=== PATIENT | female | born 1970 | race Two or more races ===

== ENCOUNTER 2016-10-10 12:57 | Emergency (ER) | payer OTHER ==
[2016-10-10 13:15] VITALS: BP 140/88; PULSE 74; TEMP 98.2; BMI 28.5
--- NOTE | 2016-10-10 13:53 | PDOC ---
History of Present Illness - General Chief Complaint: Back Pain Stated Complaint: BACK PAIN Time Seen by Provider: 10/10/16 13:50 History Source: Patient Exam Limitations: No Limitations - History of Present Illness Initial Comments: CHIEF COMPLAINT: 46 y/o afebrile female with no significant PMH c/o left shoulder and right mid back pain for the past few days. 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 She states the pain started a few days ago. She has tried taking 200mg of ibuprofen one time with no relief. She denies trauma to back, fall, and all other symptoms. Vital signs on arrival are within normal limits. REVIEW OF SYSTEMS: GENERAL/CONSTITUTIONAL: Subjective fever/chills. No weakness. No weight change. HEAD, EYES, EARS, NOSE AND THROAT: No change in vision. No ear pain or discharge. No sore throat. CARDIOVASCULAR: No chest pain or shortness of breath. MUSCULOSKELETAL: +left shoulder pain and right mid back pain. No neck pain. SKIN: No rash or easy bruising. NEUROLOGIC: No headache, vertigo, loss of consciousness, or loss of sensation. PHYSICAL EXAM: GENERAL: The patient is awake, alert, and fully oriented, in no acute distress. SHe is well appearing and ambulatory. MUSCULOSKELETAL: Pain reproduced with palpation of left trapezius muscle. No left AC joint or clavicle TTP or deformities. BACK: Pain reproduced with palpation of right middle paravertebral back muscles. No midline thoracic or lumbar spine TTP or step offs. EXTREMITIES: Normal range of motion, no edema. NEUROLOGICAL: Normal speech, normal gait. CN II-XII grossly intact. PSYCH: Normal mood, normal affect. SKIN: Warm, dry, normal turgor, no rashes or lesions noted. Past History - Past Medical History Allergies/Adverse Reactions: Allergies Allergy/AdvReac Type Severity Reaction Status Date / Time No Known Allergies Allergy Verified 10/10/16 13:15 Home Medications: Ambulatory Orders NK [No Known Home Medication] 10/10/16 Other medical history: NONE - Psycho/Social/Smoking Cessation Hx Anxiety: No Suicidal Ideation: No Smoking History: Never smoked Hx Alcohol Use: No Drug/Substance Use Hx: No Substance Use Type: None *Physical Exam - Vital Signs Last Vital Signs Temp Pulse Resp BP Pulse Ox 98.2 F 74 20 140/88 99 10/10/16 13:12 10/10/16 13:12 10/10/16 13:12 10/10/16 13:12 10/10/16 13:12 Medical Decision Making - Medical Decision Making A/P: 46 y/o female with muscle strain of shoulder and back secondary to repetitive heavy pushing and pulling. The patient had a total hysterectomy and therefore cannot be . Plan is as follows: 1. IM toradol Instructed the patient to apply heating pad to affected area, take 600mg of ibuprofen every 6 hours for pain with food and avoid repetitive pushing and pulling. Instructed her to f/u with her PCP within 1 week and return to the ER with any worsening or concerning symptoms. The patient verbalizes understanding of all instructions, has no further questions and is awaiting discharge. *DC/Admit/Observation/Transfer Diagnosis at time of Disposition: Muscle strain - Discharge Dispostion Disposition: HOME Condition at time of disposition: Good - Patient Instructions Printed Discharge Instructions: DI for Muscle Strain Additional Instructions: Discharge Instructions: -Take 600mg of Ibuprofen every 6 hours with food for pain -Apply heating pad to the affected area as needed -Avoid repetitive pushing or pulling activities until feeling better -Return to the ER with any worsening or concerning symptoms Instrucciones de heladio: -Angélica 600mg de ibuprofeno cada 6 horas con alimentos para el dolor -Aplicar almohadilla de calefaccin a la romaine afectada segn sea necesario -Evitar las actividades repetitivas de empujar o tirar hasta sentirse mejor -Vuelva a la ramón de emergencias con cualquier empeoramiento o sntomas relacionados Print Language: ICELANDIC - Post Discharge Activity Work/School Note: Back to Work
[2016-10-10] MEDS ORDERED: KETOROLAC TROMETHAMINE 60 MG/2 ML VIAL IM ONE (14:30)
[2016-10-10] MEDS ORDERED: KETOROLAC TROMETHAMINE 60 MG/2 ML VIAL ONE (14:47)
== END 2016-10-10 15:01 | disposition home or self-care (01) ==
LOC: JERFT 12:57
PROC: 3E0233Z Introduction of Anti-inflammatory into Muscle, Percutaneous Approach (ICD-10-PCS; principal; 2016-10-10)
DX: S46.812A Strain of other muscles, fascia and tendons at shoulder and upper arm level, left arm, initial encounter (principal); X50.3XXA Overexertion from repetitive movements, initial encounter; X50.1XXA Overexertion from prolonged static or awkward postures, initial encounter; Y93.E2 Activity, laundry; Y92.89 Other specified places as the place of occurrence of the external cause; Y99.0 Civilian activity done for income or pay
CPT/HCPCS: 99281-25